=== PATIENT | male | born 1975 | race Caucasian/White ===

== ENCOUNTER 2018-11-28 21:26 | Emergency (ER) | payer BC, OTHER ==
[2018-11-28] MEDS ORDERED: chlordiazePOXIDE 25 MG Cap PO ONE (22:26)
--- NOTE | 2018-11-28 22:27 | EDM.PDOC ---
ED HPI GENERAL MEDICAL PROBLEM - General Chief Complaint: Upper Extremity Injury/Pain Stated Complaint: INJURED RIGHT SHOULDER Time Seen by Provider: 11/28/18 21:30 - History of Present Illness INITIAL COMMENTS - FREE TEXT/NARRATIVE: 43-year-old male presents emergency room with right shoulder pain. The patient has been working with some horses. The patient was thrown off the same horse twice the most recent time was 3-1/2 to 4 hours ago. He did hit his head but no loss of consciousness, no unusual behavior no nausea vomiting. What really hurts is his right shoulder. The patient landed on his right shoulder both times when he was thrown off a horse. He is able to move it but he is concerned it might be dislocated. He has significant discomfort especially the posterior aspect of the shoulder. Patient denies any other injuries at this point Right Shoulder Pain Score (Numeric/FACES): 7 - Related Data Allergies Allergy/AdvReac Type Severity Reaction Status Date / Time No Known Allergies Allergy Verified 11/28/18 22:04 Home Meds: Home Meds . [No Known Home Meds] 11/28/18 [History] Past Medical History - Past Health History Medical/Surgical History: Denies Medical/Surgical History Social & Family History - Tobacco Use Smoking Status *Q: Never Smoker Second Hand Smoke Exposure: No - Caffeine Use Caffeine Use: Reports: None - Recreational Drug Use Recreational Drug Use: No Review of Systems - Review of Systems Review Of Systems: See Below Constitutional: Reports: No Symptoms Eyes: Reports: No Symptoms Ears: Reports: No Symptoms Nose: Reports: No Symptoms Mouth/Throat: Reports: No Symptoms Respiratory: Reports: No Symptoms Cardiovascular: Reports: No Symptoms GI/Abdominal: Reports: No Symptoms Genitourinary: Reports: No Symptoms Musculoskeletal: Reports: No Symptoms Skin: Reports: No Symptoms Neurological: Reports: No Symptoms Psychiatric: Reports: No Symptoms ED EXAM, GENERAL - Physical Exam Exam: See Below Exam Limited By: No Limitations General Appearance: Alert, No Apparent Distress Eye Exam: Bilateral Eye: Normal Inspection Ears: Normal External Exam, Normal Canal, Normal TMs Nose: Normal Inspection, Normal Mucosa, No Blood Throat/Mouth: Normal Inspection, Normal Lips, Normal Teeth, Normal Gums, Normal Oropharynx, Normal Voice, No Airway Compromise Head: Atraumatic, Normocephalic Neck: Normal Inspection, Supple, Non-Tender, Full Range of Motion, Other (This demonstrates good range of motion with his neck). No: Lymphadenopathy (L), Lymphadenopathy (R) Respiratory/Chest: No Respiratory Distress, Lungs Clear, Normal Breath Sounds Cardiovascular: Regular Rate, Rhythm, No Edema, No Murmur GI/Abdominal: Normal Bowel Sounds, Soft, Non-Tender Extremities: Other (Has marked tenderness of the right shoulder other extremities are normal the patient is worried he might be dislocated I did passive range of motion with the shoulder it was fairly well-tolerated he does not do well with his shoulder above 90. Clearly by exam his shoulder is not dislocated) Neurological: Alert, Oriented, CN II-XII Intact, Normal Cognition, Normal Gait, Normal Reflexes, No Motor/Sensory Deficits Psychiatric: Normal Affect, Normal Mood Skin Exam: Warm, Dry, Intact Lymphatic: No Adenopathy Course - Vital Signs Last Recorded V/S: Last Vital Signs Temp 36.8 C 11/28/18 21:33 Pulse 104 H 11/28/18 21:33 Resp 20 11/28/18 21:33 BP 143/86 H 11/28/18 21:33 Pulse Ox 99 11/28/18 21:33 - Orders/Labs/Meds Orders: Active Orders 24 hr Category Date Time Status Shoulder Comp Rt [CR] Stat Exams 11/28/18 21:53 Taken chlordiazePOXIDE [Librium] Med 11/28/18 22:26 Stop Req 25 mg PO ONETIME ONE - Re-Assessments/Exams Free Text/Narrative Re-Assessment/Exam: 11/28/18 22:39 X-ray examination of the shoulder shows no acute fracture dislocation. I've recommended the patient wear sling for a while this is refused. He should follow -up with orthopedics the end of this week her first part of next week for recheck Departure - Departure Time of Disposition: 22:40 Disposition: Home, Self-Care 01 Clinical Impression: Right shoulder injury - Discharge Information Referrals: Sanju Stephens MD [Primary Care Provider] - Ryan Werner MD [Physician] - Forms: ED Department Discharge Additional Instructions: Return to the emergency room with any questions problems worsening symptoms. Follow-up with orthopedics at the end of this week her first part of next week. Dr Werner Tylenol as needed for discomfort - My Orders Last 24 Hours: My Active Orders 11/28/18 21:53 Shoulder Comp Rt [CR] Stat 11/28/18 22:26 chlordiazePOXIDE [Librium] 25 mg PO ONETIME ONE - Assessment/Plan Last 24 Hours: My Active Orders 11/28/18 21:53 Shoulder Comp Rt [CR] Stat 11/28/18 22:26 chlordiazePOXIDE [Librium] 25 mg PO ONETIME ONE
--- NOTE | 2018-11-29 09:52 | CR ---
Right shoulder: Three views of the right shoulder were obtained. Comparison: No previous study. Glenohumeral and acromioclavicular joints appear within normal limits. No fracture, dislocation or other bony abnormality is seen. Small bony density is noted off the inferior glenoid believed to represent a small dystrophic calcification. Impression: 1. Nothing acute is seen on right shoulder exam. Diagnostic code #2
== END 2018-11-28 22:47 | disposition home or self-care (01) ==
LOC: JD.ED 21:26
DX: S49.91XA Unspecified injury of right shoulder and upper arm, initial encounter (principal); V80.010A Animal-rider injured by fall from or being thrown from horse in noncollision accident, initial encounter
CPT/HCPCS: 73030-26-RT; 73030-RT; 99282; 99283-25

== ENCOUNTER 2019-08-04 22:03 | Emergency (ER) | payer OTHER ==
--- NOTE | 2019-08-04 22:39 | EDM.PDOC ---
ED HPI GENERAL MEDICAL PROBLEM - General Chief Complaint: Back Pain or Injury Stated Complaint: BACK AND HEAD INJURY Time Seen by Provider: 08/04/19 22:21 Source of Information: Reports: Patient, Family History Limitations: Reports: No Limitations - History of Present Illness INITIAL COMMENTS - FREE TEXT/NARRATIVE: This is a 43-year-old male. Around 6 PM this evening he was roping calves and the calf circled the horse that bucked and threw the patient off onto the ground. states that he was unconscious for about 5 minutes when he came to he was having a difficult time breathing and the patient tells me the wind was knocked out of him. Since that time the states that he has been acting strange and not talking appropriately. Also his memory is somewhat sketchy about the events around the trauma. Patient seems to be alert and oriented when I will go in the room to talk with him. Complains of between the shoulder blades back pain and right scapular pain. He denies any headache. He does complain of some mild lower cervical tenderness as well. He denies any change in vision or hearing. He denies any low back pain or extremity pain either upper or lower. - Related Data Allergies Allergy/AdvReac Type Severity Reaction Status Date / Time No Known Allergies Allergy Verified 11/28/18 22:04 Home Meds: Home Meds . [No Known Home Meds] 11/28/18 [History] Past Medical History - Past Health History Medical/Surgical History: Denies Medical/Surgical History HEENT History: Reports: Impaired Vision Other HEENT History: wears glasses - Infectious Disease History Infectious Disease History: Reports: Chicken Pox Social & Family History - Family History Family Medical History: Noncontributory - Tobacco Use Smoking Status *Q: Light Tobacco Smoker Years of Tobacco use: 15 Packs/Tins Daily: 0 - Caffeine Use Caffeine Use: Reports: None - Recreational Drug Use Recreational Drug Use Frequency: Socially ED ROS GENERAL - Review of Systems Review Of Systems: See Below Constitutional: Denies: Fever, Chills HEENT: Reports: No Symptoms Respiratory: Reports: No Symptoms Cardiovascular: Reports: No Symptoms Endocrine: Reports: No Symptoms GI/Abdominal: Reports: No Symptoms : Reports: No Symptoms Musculoskeletal: Reports: No Symptoms Skin: Reports: No Symptoms Neurological: Reports: No Symptoms Psychiatric: Reports: No Symptoms Hematologic/Lymphatic: Reports: No Symptoms ED EXAM, UPPER BACK/NECK PAIN - Physical Exam Exam: See Below Exam Limited By: No Limitations General Appearance: Alert, WD/WN, No Apparent Distress. No: Lethargic, Obtunded Eye Exam: Bilateral Eye: Normal Inspection Ears Exam: Normal External Exam, Normal Canal, Normal TMs, Other (No hemotympanum ) Nose Exam: Normal Inspection Throat/Mouth Exam: Normal Inspection, Normal Lips, Normal Teeth, Normal Voice, No Airway Compromise, Other (Denies any chipped teeth or laceration to the tongue) Head Exam: Normocephalic, Other (No obvious head trauma noted) Neck Exam: Full Range of Motion, Other (Planes of lower thoracic tenderness on palpation but he seems to have full rotation of the neck flexion and extension, his trapezius muscles are slightly tender as well as the paraspinal muscles. Midline spine pain of the cervical spine) Cardiovascular/Respiratory: Regular Rate, Rhythm GI/Abdominal: Soft, Non-Tender, Other (Denies any tenderness of the abdomen in the upper or lower abdomen on palpation) Back Exam: Full Range of Motion, Other (Planes of pain in the midthoracic area between the shoulder blades but he is got developing bruise across his right scapula and his posterior right shoulder. He does not have any significant midline thoracic spine pain on palpation. He has no lumbar tenderness noted on palpation and movement.) Extremities: Normal Inspection, Normal Range of Motion, Other (He denies any upper extremity or lower extremity injury or pain with movements of those extremities and he walks with no difficulty and stands and moves with no difficulty) Neurologic: No Motor/Sensory Deficits, Alert, Normal Mood/Affect, Oriented x 3. No: Aphasia Psychiatric: Normal Affect, Normal Mood Skin Exam: Warm/Dry Course - Vital Signs Last Recorded V/S: Last Vital Signs Temp 98.6 F 08/04/19 22:11 Pulse 96 08/04/19 22:11 Resp 16 08/04/19 22:11 BP 134/90 08/04/19 22:11 Pulse Ox 96 08/04/19 22:11 - Orders/Labs/Meds Orders: Active Orders 24 hr Category Date Time Status Cervical Spine wo Cont [CT] Stat Exams 08/04/19 22:30 Taken Chest wo Cont [CT] Stat Exams 08/04/19 22:31 Taken Head wo Cont [CT] Stat Exams 08/04/19 22:30 Taken Thoracic Spine wo Cont [CT] Stat Exams 08/04/19 22:32 Taken Labs: Laboratory Tests 08/04/19 08/04/19 Range/Units 22:32 22:32 WBC 18.56 H (4.23-9.07) K/mm3 RBC 5.05 (4.63-6.08) M/mm3 Hgb 15.4 (13.7-17.5) gm/dl Hct 43.9 (40.1-51.0) % MCV 86.9 (79.0-92.2) fl MCH 30.5 (25.7-32.2) pg MCHC 35.1 (32.2-35.5) g/dl RDW Std Deviation 38.4 (35.1-43.9) fL Plt Count 298 (163-337) K/mm3 MPV 10.9 (9.4-12.3) fl Neut % (Auto) 77.1 H (34.0-67.9) % Lymph % (Auto) 15.5 L (21.8-53.1) % Cross % (Auto) 6.1 (5.3-12.2) % Eos % (Auto) 0.2 L (0.8-7.0) Baso % (Auto) 0.3 (0.1-1.2) % Neut # (Auto) 14.34 H (1.78-5.38) K/mm3 Lymph # (Auto) 2.87 (1.32-3.57) K/mm3 Cross # (Auto) 1.13 H (0.30-0.82) K/mm3 Eos # (Auto) 0.03 L (0.04-0.54) K/mm3 Baso # (Auto) 0.05 (0.01-0.08) K/mm3 Manual Slide Review Sodium 136 (136-145) mEq/L Potassium 3.8 (3.5-5.1) mEq/L Chloride 100 (98-107) mEq/L Carbon Dioxide 25 (21-32) mEq/L Anion Gap 14.8 (5-15) BUN 14 (7-18) mg/dL Creatinine 1.2 (0.7-1.3) mg/dL Est Cr Clr Drug Dosing 87.12 mL/min Estimated GFR (MDRD) > 60 (>60) mL/min BUN/Creatinine Ratio 11.7 L (14-18) Glucose 103 (74-106) mg/dL Calcium 8.4 L (8.5-10.1) mg/dL Total Bilirubin 1.0 (0.2-1.0) mg/dL AST 23 (15-37) U/L ALT 32 (16-63) U/L Alkaline Phosphatase 57 (46-116) U/L Total Protein 7.3 (6.4-8.2) g/dl Albumin 4.0 (3.4-5.0) g/dl Globulin 3.3 gm/dL Albumin/Globulin Ratio 1.2 (1-2) - Re-Assessments/Exams Free Text/Narrative Re-Assessment/Exam: 08/04/19 23:30 It is noted to have an 18,000 white count with a 77 neutrophils. I think this is related to the trauma since he does not appear to have any source of infection. Seems to be doing okay in the ER here with good vital signs and he does not really have any complaints other than his right upper back and mid back area. He continues to be alert and oriented. I did speak to his in the lobby regarding the injury. Apparently EMS was at the scene and they suggested he come to the ER for evaluation since he did have a loss of consciousness. 08/04/19 23:46 I spoke to the patient regarding the CT scan of his head, cervical spine, thoracic spine and chest. They were all normal. I explained that even though his CT of his head is normal he could still have or developed a concussion. He needs to take it easy for the next several days with no straining, no bright lights and avoid electronics. Spoke to his regarding these CT scans findings. For instructions on concussion care. Departure - Departure Time of Disposition: 23:54 Disposition: Home, Self-Care 01 Condition: Fair Clinical Impression: Head injury with loss of consciousness Acute cervical sprain Qualifiers: Encounter type: initial encounter Qualified Code(s): S13.9XXA - Sprain of joints and ligaments of unspecified parts of neck, initial encounter Contusion of thoracic wall Qualifiers: Encounter type: initial encounter Contusion of thoracic wall detail: back wall of thorax Laterality: right Qualified Code(s): S20.221A - Contusion of right back wall of thorax, initial encounter Sprain of thoracic spine Qualifiers: Encounter type: initial encounter Qualified Code(s): S23.9XXA - Sprain of unspecified parts of thorax, initial encounter Contusion of right shoulder Qualifiers: Encounter type: initial encounter Qualified Code(s): S40.011A - Contusion of right shoulder, initial encounter Concussion Qualifiers: Encounter type: initial encounter Loss of consciousness presence/duration: with LOC of 30 min or less Qualified Code(s): S06.0X1A - Concussion with loss of consciousness of 30 minutes or less, initial encounter - Discharge Information *PRESCRIPTION DRUG MONITORING PROGRAM REVIEWED*: Not Applicable *COPY OF PRESCRIPTION DRUG MONITORING REPORT IN PATIENT ELE: Not Applicable Instructions: Head Injury, Adult, [id number], Concussion, Adult, [id number] Referrals: Sanju Stephens MD [Primary Care Provider] - Forms: ED Department Discharge Additional Instructions: Very gentle activity over the next 2 to 3 days, take Advil or ibuprofen as needed for pain and soreness, use ice to your back on and off for the next 48 hours to help with the soreness, you need to avoid any strenuous activity or any chance of another head injury during this time until you heal because 2 head injuries back to back are worse and can cause permanent injury from the concussion, avoid electronics over the next 2 to 3 days, you need to follow-up with your family doctor later this week for recheck to make sure you are getting well, return to the ER if needed Sepsis Event Note - Evaluation Sepsis Screening Result: No Definite Risk - Focused Exam Vital Signs: Vital Signs Temp Pulse Resp BP Pulse Ox 08/04/19 22:11 98.6 F 96 16 134/90 96 Date Exam was Performed: 08/04/19 Time Exam was Performed: 23:54 - My Orders Last 24 Hours: My Active Orders 08/04/19 22:30 Cervical Spine wo Cont [CT] Stat Head wo Cont [CT] Stat 08/04/19 22:31 Chest wo Cont [CT] Stat 08/04/19 22:32 Thoracic Spine wo Cont [CT] Stat - Assessment/Plan Last 24 Hours: My Active Orders 08/04/19 22:30 Cervical Spine wo Cont [CT] Stat Head wo Cont [CT] Stat 08/04/19 22:31 Chest wo Cont [CT] Stat 08/04/19 22:32 Thoracic Spine wo Cont [CT] Stat
--- NOTE | 2019-08-05 10:10 | CT ---
Head CT Technique: Multiple axial sections through the brain were obtained. Intravenous contrast was not utilized. Comparison: No prior intracranial imaging is available. Findings: Ventricles along with basal cisterns and sulci over the convexities are within normal limits for the patient's age. No abnormal parenchymal densities are seen. No evidence of intracranial hemorrhage. No midline shift or mass-effect is seen. Mild mucosal thickening is noted within the anterior ethmoid sinuses. Visualized mastoid sinuses show nothing acute. No acute calvarial finding is appreciated. Impression: 1. Minimal ethmoid sinus findings believed to be pre-existing and not acute. 2. No acute intracranial abnormality is appreciated. Diagnostic code #2 This report was dictated in MDT I agree with preliminary report from [facility], finalized on 08/05/19, 12:32 AM [place] Daylight Time
--- NOTE | 2019-08-05 10:10 | CT ---
CT cervical spine Technique: Multiple axial sections were obtained from above C1 inferiorly to the lower T2 level. Reconstructed sagittal and coronal images were reviewed. Comparison: No prior cervical spine imaging is available. Findings: Mild disc space narrowing is noted at C5-6. Small detached spur is noted posteriorly at C5-6. Other disc spaces and vertebral body heights are maintained. No acute fracture or subluxation is seen. Mild right-sided neural foraminal stenosis is noted at C5-6 with minimal narrowing at C5-6 on the left side. Other neural foramina are patent. Impression: 1. Mild degenerative change at C5-6 as described above. 2. Nothing acute is appreciated on CT study of the cervical spine. Diagnostic code #2 This report was dictated in MDT I agree with preliminary report from [facility], finalized on , 12:35 AM [employer] Daylight Time
--- NOTE | 2019-08-05 10:10 | CT ---
CT chest Technique: Multiple axial sections were obtained from above the lung apices inferiorly through the lung bases. Intravenous contrast was not utilized. Comparison: No previous chest CT is available. Findings: No pericardial thickening is seen. Aorta shows no aneurysm. No coronary artery calcification is seen. Mediastinum shows no hematoma. No axillary adenopathy is appreciated. Lungs show no acute parenchymal change. 2 small nodules are noted within the right lung base measuring about 5 mm in size. Lungs otherwise are clear. No acute pulmonary contusions or pleural effusions are seen. No pneumothorax is appreciated. Bone window settings were reviewed. No discrete rib fracture is appreciated. Vacuum phenomena noted at the sternomanubrial joint compatible with mild degenerative change. Impression: 1. 2 small nodules within the right lung base measuring about 5 mm. If patient is a smoker, recommend repeat noncontrast chest CT study in one year. If patient is not a smoker, these can be ignored. 2. Other nonacute findings as noted above. Nothing acute is appreciated. Diagnostic code #9 This report was dictated in MDT I agree with preliminary report from [facility] (with other recommendation as described above., finalized on 08/05/19, 12:42 AM [place] Daylight Time
--- NOTE | 2019-08-05 10:11 | CT ---
CT thoracic spine Technique: Multiple axial sections through the thoracic spine were obtained. Reconstructed coronal and sagittal images were obtained. Findings: Scattered anterior endplate osteophytes noted within the mid and lower thoracic spine. Vertebral bodies and posterior arches are intact with no fracture being seen. No bony central or bony neural foraminal stenosis is seen. No focal disc herniation is appreciated. Scoliosis is noted. Impression: 1. Mild degenerative change and scoliosis. 2. Nothing acute is appreciated on CT study of the thoracic spine. Diagnostic code #2 This report was dictated in MDT I agree with preliminary report from [facility], finalized on 08/05/19, 12:38 AM [place] Daylight Time
== END 2019-08-05 00:07 | disposition home or self-care (01) ==
LOC: JD.ED 22:03
DX: S06.0X1A Concussion with loss of consciousness of 30 minutes or less, initial encounter (principal); S13.4XXA Sprain of ligaments of cervical spine, initial encounter; S23.9XXA Sprain of unspecified parts of thorax, initial encounter; S40.011A Contusion of right shoulder, initial encounter; F17.210 Nicotine dependence, cigarettes, uncomplicated; W55.12XA Struck by horse, initial encounter
CPT/HCPCS: 36415; 70450; 70450-26; 71250; 71250-26; 72125; 72125-26; 72128; 72128-26; 80053; 85025; 99283; 99284-25

== ENCOUNTER 2021-09-25 10:31 | Emergency (ER) | payer BC ==
[2021-09-25] MEDS ORDERED: predniSONE 10 MG Tab PO ONE (15:26)
== END 2021-09-25 15:46 | disposition home or self-care (01) ==
LOC: JD.ED 10:31
DX: G51.0 Bell's palsy (principal); Z88.1 Allergy status to other antibiotic agents
CPT/HCPCS: 36415; 70450; 70551; 80053; 82947; 84484; 85025; 85379; 85610; 85730; 93005; 99285; J7512

== ENCOUNTER 2025-01-15 09:04 | Emergency (ER) | payer BC ==
[2025-01-15] MEDS ORDERED: Sodium Chloride 0.9% 10 ML Syringe FLUSH PRN (10:06)
[2025-01-15 10:17] LABS: BASOPHILS ABSOLUTE AUTO 0.1 K/mm3 (0.0-0.2); BASOPHILS PERCENT AUTO 0.8 % (0.0-1.0); EOSINOPHILS ABSOLUTE AUTO 0.1 K/mm3 (0.0-0.4); EOSINOPHILS PERCENT AUTO 0.8 % (0.0-6.0); IMMATURE GRAN ABSOLUTE AUTO 0.10 K/mm3 (0.00-0.05); IMMATURE GRAN PERCENT AUTO 0.8 % (0.0-0.4); LYMPHOCYTES ABSOLUTE AUTO 2.1 K/mm3 (1.0-4.8); LYMPHOCYTES PERCENT AUTO 17.9 % (24.0-44.0); MEAN PLATELET VOLUME 10.9 fl (9.4-12.4); MONOCYTES ABSOLUTE AUTO 0.9 K/mm3 (0.0-0.8); MONOCYTES PERCENT AUTO 7.7 % (0.0-8.0); NEUTROPHILS ABSOLUTE AUTO 8.5 K/mm3 (1.8-7.7); NEUTROPHILS PERCENT AUTO 72.0 % (41.0-71.0); NRBC ABSOLUTE 0.00 (0.00-0.02); NRBC PERCENT 0.0 % (0.0-0.2); PLATELET COUNT,PLT 310 K/mm3 (150-400); RED BLOOD CELL COUNT 4.89 M/mm3 (4.52-5.90); WHITE BLOOD CELL COUNT,WBC 11.81 K/mm3 (3.9-11.3)
[2025-01-15 10:29] LABS: A/G RATIO 1.0 (1-2); ALANINE AMINOTRANSFERASE,ALT 21.0 U/L (16-63); ASPARTATE AMNIOTRANSFERASE,AST 11.0 U/L (15-37); BILIRUBIN TOTAL 1.4 mg/dL (0.2-1.0); BLOOD UREA NITROGEN,BUN 13.0 mg/dL (7-18); CARBON DIOXIDE,CO2 29.0 mEq/L (21-32); CHLORIDE,CL 102.0 mEq/L (98-107); CREATINE KINASE,CK 53.0 U/L (39-308); CREATININE 1.3 mg/dL (0.7-1.3); EST CRCL DRUG DOSING (CG) 75.44 mL/min; ESTIMATED GFR 67.0 mL/min (>60); GLUCOSE RANDOM 109.0 mg/dL (70-99); POTASSIUM,K 4.1 mEq/L (3.5-5.1); PROTEIN TOTAL,TP 7.6 g/dl (6.4-8.2); SODIUM,NA 139.0 mEq/L (136-145)
[2025-01-15] MEDS: Sodium Chloride 0.9% 10 ML Syringe FLUSH ONE (10:32)
[2025-01-15] MEDS: Iopamidol 612 MG/ML 30 ML SDV IVPUSH ONE (10:32)
[2025-01-15] MEDS: Iopamidol 612 MG/ML 100 ML Bottle IVPUSH ONE (10:32)
[2025-01-15] MEDS: Diphtheria,Pertussis(Acell),Tetanus Vaccine 0.5 ML Syringe IM ONE (10:59)
[2025-01-15 12:27] LABS: APPEARANCE,URINE CLEAR (Clear); GLUCOSE,URINE NEGATIVE (Negative); OCCULT BLOOD,URINE 1+ (Negative)
[2025-01-15 12:38] LABS: EPITHELIAL CELLS,URINE 0-5 /hpf (0-5)
== END 2025-01-15 13:09 | disposition home or self-care (01) ==
LOC: JD.ED 09:04
DX: S22.42XA Multiple fractures of ribs, left side, initial encounter for closed fracture (principal); J18.9 Pneumonia, unspecified organism; K21.9 Gastro-esophageal reflux disease without esophagitis; F17.200 Nicotine dependence, unspecified, uncomplicated; Z88.1 Allergy status to other antibiotic agents; Z88.8 Allergy status to other drugs, medicaments and biological substances; Z79.899 Other long term (current) drug therapy; X58.XXXA Exposure to other specified factors, initial encounter; Y93.89 Activity, other specified
CPT/HCPCS: 36415; 70450; 71260; 72125; 73552; 73590; 73630; 74177; 80053; 81001; 82550; 83690; 85025; 87428; 90471; 90715; 93971; 96361; 96374; 99284; J1171; J7030; Q9967